=== PATIENT | male | born 2000 | race Caucasian/White ===

== ENCOUNTER 2023-12-26 08:38 | Emergency (ER) | payer BC, SELFPAY ==
[2023-12-26 08:47] VITALS: BP 144/86
--- NOTE | 2023-12-26 09:07 | ED.GENMED ---
History of Present Illness
General
Chief Complaint: Chest Pain
Time Seen by Provider: 12/26/23 08:57
History of Present Illness
History of Present Illness:
23-year-old previously healthy male presents to the emergency department for ration of right-sided chest discomfort days ago. Pain began eating fried chicken strips. Radiates through the scapula back on the right. Slightly pleuritic and
reproducible in nature. Denies any abdominal pain. Denies any worsening with food intake since that time. No recent respiratory illnesses. Denies coughing or shortness of breath. No extremity paresthesias, fever, chills, or sweats. Non-smoker.
Denies any family history of precocious coronary artery disease
Review of Systems
Review of Systems
Allergies reviewed?: Yes
All Other Systems: ROS reviewed and negative except as documented in HPI and ROS
Phy Exam
Physical Exam
Physical Exam:
GEN: Well appearing, NAD, WDWN
HEENT: Oral mucosa moist, no scleral icterus
Cardiac: Regular rate and rhythm, no murmurs
Lung: No respiratory distress, no tachypnea, lungs clear to auscultation bilaterally
Chest: No palpable deformities, reproducible pain to palpation of the right chest wall superior to the nipple
Abdomen: Soft, grossly nontender, negative Randhawa's
MSK: No gross deformity or injuries
Skin: Good color, no pallor or jaundice, no rashes
Neuro: AO x3, moves all extremities freely
Psych: Calm, cooperative
Scores
Heart Score for Chest Pain Patients
STEMI patient?: No
History: Slightly or Non-Suspicious
ECG: Normal
Age: </= 45 years
Risk Factors: No Risk Factors
Troponin: </= Normal Limit
Heart Score for Chest Pain Patients: 0
Heart Score Risk: 2.5% MACE over next 6 weeks
Course
Orders/Labs/Results
Orders:
Orders
12/26/23 08:40
Electrocardiogram (*1) Urgent
Reason for Study: Chest Pain
12/26/23 08:41
EKG- Treatment ONCE
12/26/23 09:07
CR Chest - 2 Views Urgent
Comment:
Reason For Exam: chest pain
Vital Signs
Initial and Last Documented VS:
Initial Vital Signs
Resp
18
12/26/23 08:45
Last Documented Vital Signs
Temp Pulse Resp BP Pulse Ox
99.9 F 79 18 144/86 98
12/26/23 08:47 12/26/23 08:47 12/26/23 08:47 12/26/23 08:47 12/26/23 08:47
MDM/Problems Addressed
MDM/Problems Addressed:
23-year-old healthy male presenting with right-sided chest pain. The pain is reproducible on exam and is somewhat pleuritic suggesting a musculoskeletal etiology. EKG is nonischemic and the patient has no cardiac risk factors. Meets PE rule out
criteria. Chest x-ray shows no infiltrates. Incidentally he is noted to have a mildly elevated temp at 99.9 however has no infectious signs or symptoms and no coughing. Likely chest wall/musculoskeletal source, discussed supportive care and
return parameters
Comment
Comment:
EKG independently interpreted by me shows sinus rhythm at a rate of 75 with incomplete right bundle branch block, no ST changes concerning for ischemia, QTc of 397
*Critical Care Note
Total Time (30-74mins, 75-104mins- exclusive of procedures): Not Applicable
ED Attending Note
-
Portions of this chart may have been created with voice recognition software.� Occasional wrong word or��sound alike� substitutions may have occurred due to the inherent limitations of voice recognition software.
Discharge Plan
Departure
Patient Disposition: Home (Routine Discharge)
Date of Disposition: 12/26/23
Time of Disposition: 09:42
Patient with high blood pressure during this ER visit?: No
Discharge Problem:
Acute chest wall pain
Instructions: Chest Pain That Is Not Caused by the Heart (DC)
Prescriptions:
No Action
ondansetron HCl 4 mg tablet
4 mg PO TID 5 Days Qty: 15 0RF
Referrals:
NONE,* [Family Provider] -
Activity Restrictions/Additional Instructions:
Take 600mg ibuprofen every 6-8 hours for pain control for up to 5 days
If you develop a fever, shortness of breath or cough, return to the ER for re-evaluation
Interventions
Interventions:
*Risk Screen - Suicide Last Done: 12/26/23 08:45
*General Assessment Last Done: 12/26/23 08:45
*Neglect/Abuse Screening Last Done: 12/26/23 09:59
ED- Fall Risk Assessment Last Done: 12/26/23 09:59
*ED COVID-19 Vaccine History Last Done: 12/26/23 09:59
*Nursing Disposition Last Done: 12/26/23 09:59
ED- Cardiac Assessment Last Done: 12/26/23 09:23
Discharge Date and Time
Discharge Date/Time: 12/26/23 10:00
Print Language: MALAY
== END 2023-12-26 10:00 | disposition home or self-care (01) ==
LOC: EMR 08:38
PROVIDERS: EMERGENCY PHYSICIAN Student in an Organized Health Care Education/Training Program
DX: R07.89 Other chest pain (principal)
CPT/HCPCS: 99284; 71046; 93005

== ENCOUNTER 2024-04-30 18:29 | Emergency (ER) | payer BC, SELFPAY ==
[2024-04-30 18:31] VITALS: BP 161/104
[2024-04-30 18:50] LABS: % Basophils 0.6 % (0-2); % Eosinophils 0.8 % (0-6); % Immature Granulocytes 0.1 % (0-0.5); % Lymphocytes 28.7 % (20.5-51.1); % Monocytes 6.8 % (1.7-9.3); Absolute Eosinophils 0.1 10^3/uL (0-0.7); Absolute Monocytes 0.5 10^3/uL (0.1-0.6); Absolute Neutrophils 4.5 10^3/uL (1.4-6.5); Hematocrit 47.9 % (39.0-52.0); Hemoglobin 16.6 g/dL (13.0-18.0); Mean Corp Hgb Conc. 34.7 g/dL (33.0-37.0); Mean Corpuscular Hgb 28.7 pg (27.0-31.0); Mean Corpuscular Volume 82.9 fL (80.0-94.0); Mean Platelet Volume 11.3 fL (7.4-10.4); Nucleated Red Blood Cells % 0 % (-); Platelet Count 211 10^3/uL (130-400); Red Blood Cell Count 5.78 10^6/uL (4.70-6.10); Red Cell Dist. Width 12.6 % (11.5-14.5); White Blood Cell Count 7.1 10^3/uL (4.8-10.8)
[2024-04-30 19:03] LABS: ALT (SGPT) 53 U/L (0-50); AST (SGOT) 43 U/L (17-59); Albumin 4.7 g/dl (3.5-5.0); Alkaline Phosphatase 110 U/L (38-126); Blood Urea Nitrogen 15 mg/dl (9-20); Calcium 9.8 mg/dl (8.4-10.2); Carbon Dioxide 28 mmol/L (22-30); Chloride 100 mmol/L (98-107); Glucose 103 mg/dl (70-99); Sodium 137 mmol/L (135-145); Total Bilirubin 0.5 mg/dl (0.2-1.3); Total Protein 7.8 g/dl (6.3-8.2); eGFR > 60.00
[2024-04-30 19:47] LABS: Troponin I < 0.012 ng/ml
--- NOTE | 2024-04-30 20:47 | ED.GENMED ---
History of Present Illness
<EARL Swann - Last Filed: 04/30/24 21:01>
General
Chief Complaint: Chest Pain
Source: patient
Exam Limitations: none
Time Seen by Provider: 04/30/24 20:36
History of Present Illness
History of Present Illness:
This is a 23 year old male that comes in with c/o chest pain after stretching. States that he has had some chest discomfort on and off since Monday. States that he was drinking then. State that he was doing some stretching and was bent over and he
had left sided chest discomfort and when he stood up the pain went away. States that he had some discomfort in the neck later in the day. Denies any fever, chills, SOB, abd pain, nausea, vomiting, diarrhea, headache, dizziness, urinary burning.
Past History
<EARL Swann - Last Filed: 04/30/24 21:01>
Past History
ED Past Medical History: None; Negative Asthma, HTN, Hypercholesterolemia or NIDDM
ED Past Surgical History: None
Social History
Tobacco: Non-smoker
Alcohol: Occasional
Personal: Single
Living: alone
Review of Systems
<EARL Swann - Last Filed: 04/30/24 21:01>
Review of Systems
All Other Systems: ROS reviewed and negative except as documented in HPI and ROS
Constitutional: Reports no symptoms; Denies fever or chills
EENT: Reports no symptoms
Respiratory: Reports no symptoms; Denies cough or trouble breathing
Cardiac: Reports chest pain
ABD/GI: Reports no symptoms; Denies abdominal pain, nausea, vomiting or diarrhea
: Reports no symptoms; Denies dysuria, frequency or urgency
Musculoskeletal: Reports no symptoms
Skin: Reports no symptoms
Neurological: Reports no symptoms; Denies dizzy or headache
Psychiatric: Reports no symptoms
Phy Exam
<EARL Swann - Last Filed: 04/30/24 21:01>
General Physical Exam
General Presentation: well appearing and no apparent distress
General age: appears stated age
General Skin: warm and dry
General Habitus: normal
General Mental: alert
General Hydration: appears well hydrated
ENT Exam
ENT Exam: TM's normal, pharynx normal and neck supple
Eye Exam
Eye Exam: EOMI
Cardiovascular Exam
Cardiovascular Exam: regular rate/rhythm, no edema, no murmur and normal peripheral pulses
Pulmonary Exam
Pulmonary Exam: lungs clear, no respiratory distress, no rales, chest non tender, no crackles, no rhonchi, no wheezing and no cough
Gastrointestinal Exam
Gastrointestinal Exam: normal bowel sounds, non tender, soft, no organomegaly, no pulsatile mass and non distended
Musculoskeletal Exam
Musculoskeletal Exam: full ROM and no edema
Skin Exam
Skin Exam: normal color, warm/dry, no rash and no petechia
Psychiatric Exam
Psychiatric Exam: normal mood/affect
Scores
<EARL Swann - Last Filed: 04/30/24 21:01>
Heart Score for Chest Pain Patients
STEMI patient?: No
History: Slightly or Non-Suspicious
ECG: Normal
Age: </= 45 years
Risk Factors: No Risk Factors
Troponin: </= Normal Limit
Heart Score for Chest Pain Patients: 0
Heart Score Risk: 2.5% MACE over next 6 weeks
<Heriberto Shipman DO - Last Filed: 04/30/24 21:27>
Heart Score for Chest Pain Patients
Heart Score for Chest Pain Patients: 0
Heart Score Risk: 2.5% MACE over next 6 weeks
Course
<EARL Swann - Last Filed: 04/30/24 21:01>
Orders/Labs/Results
Orders:
Orders
04/30/24 18:32
Electrocardiogram (*1) Urgent
Reason for Study: Chest Pain
EKG- Treatment ONCE
04/30/24 18:41
Complete Blood Count/With Diff Urgent
Comprehensive Metabolic Panel Urgent
04/30/24 19:09
Troponin I Urgent
04/30/24 20:47
Pantoprazole [Protonix] 40 mg PO NOW STA
Abnormal Lab Results
04/30/24
18:41
MPV 11.3 H fL
(7.4-10.4)
Glucose 103 H mg/dl
(70-99)
ALT 53 H U/L
(0-50)
04/30/24 18:41
04/30/24 18:41
Glucose nonfasting. ALT sightly elevated. Troponin <0.012
Vital Signs
Initial and Last Documented VS:
Initial Vital Signs
Temp Pulse Resp BP Pulse Ox
98.5 F 88 16 161/104 100
04/30/24 18:31 04/30/24 18:31 04/30/24 18:31 04/30/24 18:31 04/30/24 18:31
Last Documented Vital Signs
Temp Pulse Resp BP Pulse Ox
98.5 F 89 16 145/100 97
04/30/24 18:31 04/30/24 21:12 04/30/24 21:12 04/30/24 21:12 04/30/24 21:12
<Heriberto Shipman DO - Last Filed: 04/30/24 21:27>
Orders/Labs/Results
Orders:
Orders
04/30/24 18:32
Electrocardiogram (*1) Urgent
Reason for Study: Chest Pain
EKG- Treatment ONCE
04/30/24 18:41
Complete Blood Count/With Diff Urgent
Comprehensive Metabolic Panel Urgent
04/30/24 19:09
Troponin I Urgent
04/30/24 20:47
Pantoprazole [Protonix] 40 mg PO NOW STA
Abnormal Lab Results
04/30/24
18:41
MPV 11.3 H fL
(7.4-10.4)
Glucose 103 H mg/dl
(70-99)
ALT 53 H U/L
(0-50)
04/30/24 18:41
04/30/24 18:41
Vital Signs
Initial and Last Documented VS:
Initial Vital Signs
Temp Pulse Resp BP Pulse Ox
98.5 F 88 16 161/104 100
04/30/24 18:31 04/30/24 18:31 04/30/24 18:31 04/30/24 18:31 04/30/24 18:31
Last Documented Vital Signs
Temp Pulse Resp BP Pulse Ox
98.5 F 89 16 145/100 97
04/30/24 18:31 04/30/24 21:12 04/30/24 21:12 04/30/24 21:12 04/30/24 21:12
<EARL Swann - Last Filed: 04/30/24 21:01>
MDM/Problems Addressed
Differential Diagnosis Includes:
Musculoskeletal chest wall pain, GERD
MDM/Problems Addressed:
This is a 23 year old male that comes in with c/o chest discomfort when he was stretching and bent over. States that when he got up the pain went away. States that later in the day he had some neck discomfort. States that this has been on and off
since Monday.
Will check labs and Dr. Shipman to see patient. Will give Protonix and discharge patient.
Chronic conditions affecting care:
NA
Acute Exacerbation and/or Progression of Chronic Illness:
NA
<EARL Swann - Last Filed: 04/30/24 21:01>
*Pulse Oximetry
Patient hypoxic: no
*EKG
Interpreted by ED Provider?: Yes
Heart Rate: 89
Rate: normal
Rhythm: sinus
[place]: normal axis
Interval: normal interval
QRS Pattern: normal QRS
Ischemia: no ischemia
*Assistant Maintenance Manager Interpretation
Rate: Assistant Maintenance Manager- N/A
*Critical Care Note
Total Time (30-74mins, 75-104mins- exclusive of procedures): Not Applicable
ED Attending Note
<EARL Swann - Last Filed: 04/30/24 21:01>
-
Portions of this chart may have been created with voice recognition software.� Occasional wrong word or��sound alike� substitutions may have occurred due to the inherent limitations of voice recognition software.
<Heriberto Shipman DO - Last Filed: 04/30/24 21:27>
ED Attending Note
Patient seen and examined by attending physician: Yes
ED Attending Note:
I have reviewed and agree with history treatment plan by Lacy Guajardo. My exam revealed 23-year-old male no acute distress. Patient denies chest pain at this time. Lungs clear, normal S1, S2, no S3 or S4. Do not suspect ACS or PE. Patient
stable for discharge.
Discharge Plan
Departure
Patient Disposition: Home (Routine Discharge)
Date of Disposition: 04/30/24
Time of Disposition: 20:55
Patient with high blood pressure during this ER visit?: Yes
Condition: Good
Covid-19: Not Applicable
Discharge Problem:
Musculoskeletal chest wall pain, GERD (gastroesophageal reflux disease)
Instructions: Acid reflux and GERD in adults, BLOOD PRESSURE, Musculoskeletal Pain
Prescriptions:
No Action
ondansetron HCl 4 mg tablet
4 mg PO TID 5 Days Qty: 15 0RF
Activity Restrictions/Additional Instructions:
As discussed, your blood work shows that your ALT is very slightly elevated. Your Troponin is normal. This is most likely musculoskeletal chest wall pain. You may use Tylenol or Ibuprofen for any discomfort. There may also be some reflux. Please
follow up with the family doctor for recheck. IF YOU HAVE INCREASED OR CHANGING PAIN, OR YOU HAVE ANY OTHER CONCERNS PLEASE RETURN TO THE EMERGENCY ROOM.
Interventions
Interventions:
*Risk Screen - Suicide Last Done: 04/30/24 18:31
*General Assessment Last Done: 04/30/24 18:31
*Neglect/Abuse Screening Last Done: 04/30/24 18:31
ED- Fall Risk Assessment Last Done: 04/30/24 21:17
*Nursing Disposition Last Done: 04/30/24 21:17
ED- Cardiac Assessment Last Done: 04/30/24 21:16
Discharge Date and Time
Discharge Date/Time: 04/30/24 21:17
Print Language: BULGARIAN
[2024-04-30] MEDS: PROTONIX 40 MG PO (21:10)
[2024-04-30 21:12] VITALS: BP 145/100
== END 2024-04-30 21:17 | disposition home or self-care (01) ==
LOC: EMR 18:29
PROVIDERS: Registered Nurse; EMERGENCY PHYSICIAN Emergency Medicine; FAMILY PHYSICIAN Family Medicine
DX: R07.89 Other chest pain (principal); M54.2 Cervicalgia; K21.9 Gastro-esophageal reflux disease without esophagitis
CPT/HCPCS: 99283; 80053; 84484; 85025; 93005